=== PATIENT | female | born 1985 | race Caucasian/White ===

== ENCOUNTER 2019-12-11 12:22 | Emergency (ER) | payer BC, MEDICAID ==
[~2019-12-11] VITALS: Ht 170.2 cm; Wt 98.0 kg
[2019-12-11 12:48] VITALS: BP 107/66
[2019-12-11 13:44] LABS: RAPID INFLUENZA A Negative (Negative); RAPID INFLUENZA B Negative (Negative)
--- NOTE | 2019-12-11 13:59 | NUR ---
LATE ENTRY FOR [age] Y/O FEMALE PRESENTS TO ED WITH C/O COUGH. "I STARTED COUGHING LAST NIGHT. I COUGH SO HARD IT MAKES MY CHEST HURT. I THINK I HAVE BRONCHITIS. I'M 25 WEEKS ALSO." PT PLACED ON CONT PULSE OX, NIBP. L&D NURSE CHECKED HEART TONES. HR 144 NADN
--- NOTE | 2019-12-11 14:33 | NUR ---
Patient/Caregiver given discharge instructions and they have confirmed that they understand the instructions. Patient ambulatory with steady gait. PT LEFT WITH ALL PERSONAL BELONGINGS.
== END 2019-12-11 14:36 | disposition home or self-care (01) ==
LOC: ED 14:08
DX: O98.512 Other viral diseases complicating pregnancy, second trimester (principal); B34.9 Viral infection, unspecified; Z3A.25 25 weeks gestation of pregnancy
CPT/HCPCS: 71046; 87400; 99284

== ENCOUNTER 2020-03-13 13:24 | Outpatient (CLI) | payer BC, MEDICAID ==
[~2020-03-13] VITALS: Ht 172.7 cm; Wt 102.2 kg
[2020-03-13 13:31] VITALS: BP 110/65
== END 2020-03-13 14:50 | disposition home or self-care (01) ==
LOC: LDOP 13:24
PROVIDERS: ATTEND Student in an Organized Health Care Education/Training Program
DX: O36.8130 Decreased fetal movements, third trimester, not applicable or unspecified (principal); Z3A.38 38 weeks gestation of pregnancy
CPT/HCPCS: 59025; 76819; 99211; G0463

== ENCOUNTER 2020-03-17 16:23 | Outpatient (CLI) | payer BC, MEDICAID ==
[~2020-03-17] VITALS: Ht 170.2 cm; Wt 102.0 kg
[2020-03-17] MEDS ORDERED: D5%-LACTATED RINGERS 1,000 ML IV SCH (16:30)
[2020-03-17] MEDS ORDERED: FAMOTIDINE 20 MG TABLET ONE (18:03)
[2020-03-17] MEDS ORDERED: FAMOTIDINE 20 MG TABLET PO ONE (18:30)
[2020-03-25] MEDS ORDERED: PREN1COM10 PO (04:56)
[2020-03-26] MEDS ORDERED: IBUP-1222 PO (09:53)
== END 2020-03-17 18:40 | disposition home or self-care (01) ==
LOC: LDOP 16:23
PROVIDERS: ATTEND Student in an Organized Health Care Education/Training Program
DX: Z34.93 Encounter for supervision of normal pregnancy, unspecified, third trimester (principal); Z3A.39 39 weeks gestation of pregnancy
CPT/HCPCS: 59025; 76819; 96360; 99211; J7121; G0463